=== PATIENT | female | born 1950 | race Caucasian/White ===

== ENCOUNTER 2017-12-27 12:15 | Emergency (ER) | payer MEDICARE, OTHER ==
[~2017-12-27] VITALS: Ht 167.6 cm; Wt 110.0 kg
[2017-12-27 12:21] VITALS: BP 129/62
== END 2017-12-27 13:20 | disposition home or self-care (01) ==
LOC: ER 12:16
DX: Z48.02 Encounter for removal of sutures (principal)
CPT/HCPCS: 99281